=== PATIENT | male | born 1985 | race Caucasian/White ===

== ENCOUNTER 2022-01-08 18:15 | Emergency (ER) | payer SELFPAY ==
[~2022-01-08] VITALS: Ht 177.8 cm; Wt 99.3 kg
[2022-01-08 18:24] VITALS: BP 137/91
--- NOTE | 2022-01-08 18:30 | NUR ---
BIB SELF C/O LEFT THUMB PUNCTURE WOUND S/P INJURY X TODAY. PMH: DENIES
[2022-01-08] MEDS ORDERED: BACI1PAC6 TP (19:10)
[2022-01-08] MEDS ORDERED: BACITRACIN OINT 500 UNITS/GM PKT TP ONE (19:10)
[2022-01-08] MEDS ORDERED: IBUP-2213 PO (19:10)
--- NOTE | 2022-01-08 19:15 | NUR ---
PT L THUMB IRRIGATED WITH NORMAL SALINE AND DRESSED / BANDAGED. + CMS AFTER APPLICATION.
[2022-01-08 19:17] VITALS: BP 137/91
--- NOTE | 2022-01-08 19:17 | NUR ---
Patient discharged with v/s stable. Written and verbal after care instructions given and explained. Patient alert, oriented and verbalized understanding of instructions. Ambulatory with steady gait. All questions addressed prior to discharge. ID band removed. Patient advised to follow up with PMD. Rx of IBUPROFEN & BACITRACIN OINT given. Patient educated on indication of medication including possible reaction and side effects. Opportunity to ask questions provided and answered.
== END 2022-01-08 19:17 | disposition home or self-care (01) ==
LOC: MED 18:15
DX: S61.431A Puncture wound without foreign body of right hand, initial encounter (principal); W26.0XXA Contact with knife, initial encounter; Y93.89 Activity, other specified; Y92.89 Other specified places as the place of occurrence of the external cause; Y99.0 Civilian activity done for income or pay
CPT/HCPCS: 99282